=== PATIENT | male | born 1965 | race Caucasian/White ===

== ENCOUNTER 2017-02-03 19:59 | Emergency (ER) | payer SELFPAY ==
[~2017-02-03] VITALS: Ht 172.7 cm; Wt 75.0 kg
[2017-02-03 20:10] VITALS: Ht 172.7 cm; Wt 75.0 kg
== END 2017-02-03 22:28 | disposition left against medical advice (07) ==
LOC: E/R 19:59
DX: Z53.21 Procedure and treatment not carried out due to patient leaving prior to being seen by health care provider (principal)

== ENCOUNTER 2017-09-16 12:44 | Emergency (ER) | payer SELFPAY ==
[~2017-09-16] VITALS: Wt 81.8 kg
== END 2017-09-16 12:51 | disposition left against medical advice (07) ==
LOC: E/R 12:44
DX: Z53.21 Procedure and treatment not carried out due to patient leaving prior to being seen by health care provider (principal)